=== PATIENT | male | born 1950 | race African-American/Black ===

== ENCOUNTER 2018-05-13 14:42 | Emergency (ER) | payer MEDICARE, OTHER ==
[~2018-05-13] VITALS: Ht 185.4 cm; Wt 138.8 kg
[~2018-05-13 14:42] MED LIST: ALBU2.5V8 IH; ALLO300T PO; ALPR2TAB2 PO; ASPI325T70 PO; BETA15CR5 TP; CARV25TA2 PO; FURO80TA3 PO; IPRA4AER IH; LEVO50TA5 PO; METF500T16 PO; OXYC20TA PO; PROM25SU33 RC
--- NOTE | 2018-05-13 15:56 | RAD ---
EXAM: Right knee, 3 views; right hip and pelvis, 3 views; right ankle, 3 views; right foot, 3 views; right shoulder, 3 views. HISTORY: Fall. COMPARISON: None. FINDINGS: Right knee: 3 views of the right knee are obtained. There is a right knee arthroplasty in expected position. There is a mildly displaced fracture of the superior patella, uncertain chronicity. There is a small right knee effusion. There are vascular and soft tissue calcifications. There is prepatellar soft tissue prominence which may be physiologic or due to a contusion. Right hip and pelvis: A frontal view of the pelvis and frontal and frog-leg views the right hip are obtained. There is no fracture, dislocation or subluxation. There is degenerative change at the lower lumbar levels. Right ankle and foot: 3 views of the right ankle and foot are obtained. There is a mildly displaced fracture of the fifth proximal phalanx. There is mild first metatarsal phalangeal and interphalangeal joint osteoarthritis. There are suspected second through fourth hammertoe deformities. No osteochondral lesion is seen. There is a small plantar spur. There is enthesopathy at the Achilles tendon insertion. There is diffuse ankle and hindfoot soft tissue swelling. Right shoulder: 3 views of the right shoulder obtained. There is no acute fracture, dislocation or subluxation. There is inferior marginal humeral head and glenoid spurring. There is degenerative subchondral sclerosis involving the superior humeral head. There is a corticated ossicle superior to a prominent acromial clavicular joint. IMPRESSION: 1. Mildly displaced right fifth proximal phalanx fracture. 2. Mildly displaced superior patellar fracture, of uncertain chronicity. Correlate for point tenderness in this location. 3. Right knee arthroplasty and small right knee effusion. 4. Mild right first metatarsal phalangeal and interphalangeal joint osteoarthritis. 5. Right second through fourth hammertoe deformities. 6. Small plantar spur. 7. Mild right glenohumeral osteoarthritis. Electronically signed by: Hansa Haley MD (05/13/2018 3:53 PM) [place] [id number]
--- NOTE | 2018-05-13 16:02 | PHYS DOC ---
Past Medical History Past Medical History: A-Fib, Anxiety, CHF, COPD, Diabetes-Type II, GERD, High Cholesterol, Hypertension, Hypothyroid Additional Past Medical Histor: gout Past Surgical History: Knee Replacement Additional Past Surgical Histo: hemorrhoidectomy Alcohol Use: Rarely Drug Use: None Adult General Chief Complaint Chief Complaint: MECHANICAL FALL HPI HPI Patient is a 68 year old male presented to the ER today for evaluation of right shoulder pain, right hip pain, right knee pain, right ankle pain, and right foot pain. Patient said he has hammer toe on right side, he tripped and fell down on his right side yesterday. He denied any head or neck injury. He denied any headache or neck pain or back pain. Patient walked in here for evaluation. He complains of right shoulder pain, right knee pain, right ankle pain , right side right foot pain. Patient denied any chest pain, no shortness of air, no cough, no fever. Patient at first refused to take his cloth off for this physician to exam him, after long discussion, he agreed to take it off but put it right back on, he said he will go to [facility] with cloth on. Review of Systems Review of Systems Constitutional: Denies fever or chills [] Eyes: Denies change in visual acuity, redness, or eye pain [] HENT: Denies nasal congestion or sore throat [] Respiratory: Denies cough or shortness of breath [] Cardiovascular: No additional information not addressed in HPI [] GI: Denies abdominal pain, nausea, vomiting, bloody stools or diarrhea [] : Denies dysuria or hematuria [] Musculoskeletal: Positive for right side shoulder pain, right hip pain, right knee pain, right ankle pain, right foot pain. Integument: Denies rash or skin lesions [] Neurologic: Denies headache, focal weakness or sensory changes [] Endocrine: Denies polyuria or polydipsia [] All other systems were reviewed and found to be within normal limits, except as documented in this note. Allergies Allergies Allergies Coded Allergies Type Severity Reaction Last Updated Verified No Known Drug Allergies 08/09/13 No Physical Exam Physical Exam Constitutional: Well developed, well nourished, no acute distress, non-toxic appearance. [] HENT: Normocephalic, atraumatic, bilateral external ears normal, oropharynx moist, no oral exudates, nose normal. [] Eyes: PERRLA, EOMI, conjunctiva normal, no discharge. [] Neck: Normal range of motion, no tenderness, supple, no stridor. [] Cardiovascular:Heart rate regular rhythm, no murmur [] Lungs & Thorax: Bilateral breath sounds clear to auscultation [] Abdomen: Bowel sounds normal, soft, no tenderness, no masses, no pulsatile masses. [] Skin: Warm, dry, no erythema, no rash. [] Back: No tenderness, no CVA tenderness. [] Extremities: There is no skin contusion on right shoulder, right hip, right knee, right ankle and right foot. Patient has pain in right shoulder when it was raised to 90 degree. There is tenderness to palpation along the lateral side of right foot, no open wound, right knee joint with full range of motion, no swelling there. Neurologic: Alert and oriented X 3, normal motor function, normal sensory function, no focal deficits noted. [] Psychologic: Affect normal, judgement normal, mood normal. [] Current Patient Data Vital Signs Vital Signs Date Time Temp Pulse Resp B/P (MAP) Pulse Ox O2 Delivery O2 Flow Rate FiO2 05/13/18 16:55 76 20 96 05/13/18 14:50 97.9 139/71 (93) Room Air 97.9 EKG EKG [] Radiology/Procedures Radiology/Procedures [][facility] [address] [place] [address] IMAGING REPORT Signed PATIENT: JAG BROWN ACCOUNT: [id number] : 1950 LOCATION: ER AGE: 68 SEX: M EXAM STATUS: REG ER ORD. PHYSICIAN: JHONATHAN LINDA DO REASON: fell last night, right knee, right ankle, big toe, right shoulder injuried. PROCEDURE: ANKLE RIGHT 3V EXAM: Right knee, 3 views; right hip and pelvis, 3 views; right ankle, 3 views; right foot, 3 views; right shoulder, 3 views. HISTORY: Fall. COMPARISON: None. FINDINGS: Right knee: 3 views of the right knee are obtained. There is a right knee arthroplasty in expected position. There is a mildly displaced fracture of the superior patella, uncertain chronicity. There is a small right knee effusion. There are vascular and soft tissue calcifications. There is prepatellar soft tissue prominence which may be physiologic or due to a contusion. Right hip and pelvis: A frontal view of the pelvis and frontal and frog-leg views the right hip are obtained. There is no fracture, dislocation or subluxation. There is degenerative change at the lower lumbar levels. Right ankle and foot: 3 views of the right ankle and foot are obtained. There is a mildly displaced fracture of the fifth proximal phalanx. There is mild first metatarsal phalangeal and interphalangeal joint osteoarthritis. There are suspected second through fourth hammertoe deformities. No osteochondral lesion is seen. There is a small plantar spur. There is enthesopathy at the Achilles tendon insertion. There is diffuse ankle and hindfoot soft tissue swelling. Right shoulder: 3 views of the right shoulder obtained. There is no acute fracture, dislocation or subluxation. There is inferior marginal humeral head and glenoid spurring. There is degenerative subchondral sclerosis involving the superior humeral head. There is a corticated ossicle superior to a prominent acromial clavicular joint. IMPRESSION: 1. Mildly displaced right fifth proximal phalanx fracture. 2. Mildly displaced superior patellar fracture, of uncertain chronicity. Correlate for point tenderness in this location. 3. Right knee arthroplasty and small right knee effusion. 4. Mild right first metatarsal phalangeal and interphalangeal joint osteoarthritis. 5. Right second through fourth hammertoe deformities. 6. Small plantar spur. 7. Mild right glenohumeral osteoarthritis. Electronically signed by: Hansa Ramos MD (05/13/2018 3:53 PM) [place] [id number] DICTATED and SIGNED BY: HANSA RAMOS MD DATE: 05/13/18 1549 Course & Med Decision Making Course & Med Decision Making Pertinent Labs and Imaging studies reviewed. (See chart for details) A walking boot was provided to patient but he refused to wear it. A knee immobilizer was given also but he refused to wear it. Patient will need to follow up with orthopedic surgeon next week for definitive care. Dragon Disclaimer Dragon Disclaimer This electronic medical record was generated, in whole or in part, using a voice recognition dictation system. Departure Departure Impression: Primary Impression: Toe fracture, right Additional Impression: Patella fracture Disposition: 01 HOME, SELF-CARE Condition: STABLE Referrals: VICTORIA GERBER (PCP) MANUEL BOYCE II, MD PLEASE CALL THIS ORTHOPEDIC SURGEON BELOW FOR FOLLOW UP NEXT WEEK. Patient Instructions: Foot Fracture, Knee - Patella Problems Problem Qualifiers JHONATHAN LINDA DO May 13, 2018 16:01
[2018-05-13 16:55] VITALS: BP 164/80
== END 2018-05-13 17:05 | disposition home or self-care (01) ==
LOC: ER 14:42
DX: S82.001A Unspecified fracture of right patella, initial encounter for closed fracture (principal); S92.401A Displaced unspecified fracture of right great toe, initial encounter for closed fracture; S92.911A Unspecified fracture of right toe(s), initial encounter for closed fracture; M19.011 Primary osteoarthritis, right shoulder; M19.071 Primary osteoarthritis, right ankle and foot; M20.41 Other hammer toe(s) (acquired), right foot; M77.31 Calcaneal spur, right foot; Z98.890 Other specified postprocedural states
CPT/HCPCS: 73030; 73502; 73562; 73610; 73630; 99283

== ENCOUNTER 2018-07-12 08:32 | Emergency (ER) | payer OTHER, MEDICARE ==
[~2018-07-12] VITALS: Ht 188 cm; Wt 136.5 kg
[2018-07-12 08:45] VITALS: BP 132/82
--- NOTE | 2018-07-12 09:44 | RAD ---
EXAM: Head and cervical spine CT without contrast. HISTORY: Fall. TECHNIQUE: Computed tomographic images of the head and cervical spine were obtained without contrast. *One or more of the following individualized dose reduction techniques were utilized for this examination: 1. Automated exposure control. 2. Adjustment of the mA and/or kV according to patient size. 3. Use of iterative reconstruction technique. COMPARISON: None. FINDINGS: Head: There is no hemorrhage. There is no mass effect or midline shift. There is no hydrocephalus. There is decreased attenuation within the cerebral white matter, likely due to chronic small vessel disease. There is mild cerebral volume loss. There is increased soft tissue density within the inferior left frontal scalp which may be due to scarring or a soft tissue contusion tests hematoma. The orbits and visualized paranasal sinuses mastoid air cells are unremarkable. Cervical spine: There is slight reversal of cervical lordosis. There is mild retrolisthesis of C3 on C4 and C4 on C5 and C5 on C6 and C6 on C7. There is degenerative endplate remodeling with disc space narrowing, osteophytosis and Schmorl's node formation at C3-C7. 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 This contributes to central canal stenosis described in detail below. There is calcified atherosclerotic plaque within the carotid bifurcations. The lung apices are unremarkable. At C2-C3, there is no stenosis. At C3-C4, there is a disc bulge and endplate osteophytosis. There is mild facet arthropathy. There is uncovertebral arthropathy. There is mild to moderate right and mild left foraminal stenosis. There is mild central canal stenosis. At C4-C5, there is a disc bulge and endplate osteophytosis. There is mild facet arthropathy. There is uncovertebral arthropathy. There is severe right and mild left foraminal stenosis. There is mild central canal stenosis. At C5-C6, there is a right paracentral disc osteophyte complex or ossification along the right paracentral posterior longitudinal ligament superimposed on a disc bulge and endplate osteophytosis. There is mild facet arthropathy. There is uncovertebral arthropathy. There is moderate to severe central canal stenosis. At C6-C7, there is a right paracentral disc osteophyte complex imposed on a disc bulge. There is left uncovertebral therapy. There is no stenosis. IMPRESSION: 1. No acute intracranial finding or evidence of acute cervical spine trauma. 2. Slight increased density within the inferior left frontal scalp, possibly due to scarring or a soft tissue hematoma/contusion. 3. Decreased attenuation within the cerebral white matter, likely due to chronic small vessel disease. 4. Multilevel degenerative change involving the cervical spine, resulting in stenosis at the aforementioned levels. Electronically signed by: Hansa Haley MD (07/12/2018 9:41 AM) [facility]
--- NOTE | 2018-07-12 09:47 | PHYS DOC ---
Past Medical History Past Medical History: A-Fib, Anxiety, CHF, COPD, Diabetes-Type II, GERD, High Cholesterol, Hypertension, Hypothyroid Additional Past Medical Histor: gout Past Surgical History: Knee Replacement Additional Past Surgical Histo: hemorrhoidectomy Alcohol Use: Rarely Drug Use: None Adult General Chief Complaint Chief Complaint: LOWEREXTREMITY INJURY [facility] HPI Patient is a 68 year old male who presents with complaining of a fall and injury to extremities. Patient stated he had a fall from a standing position in the bathroom 3 days ago because of losing his balance and complaining of pain in right shoulder, right rib cage, right knee and left leg as a constant pain and rated his pain 10 over 10 patient denies loss of consciousness or focal neuro deficit, nausea and vomiting, headache. Patient denies using any prescribed [id number] or pain medication. Patient currently taking Xarelto because of atrial fibrillation. Review of Systems Review of Systems Constitutional: Denies fever or chills [] Eyes: Denies change in visual acuity, redness, or eye pain [] HENT: Denies nasal congestion or sore throat [] Respiratory: Denies cough or shortness of breath [] Cardiovascular: No additional information not addressed in HPI [] GI: Denies abdominal pain, nausea, vomiting, bloody stools or diarrhea [] : Denies dysuria or hematuria [] Musculoskeletal: Denies back pain, reports joint pain [] Integument: Denies rash or skin lesions [] Neurologic: Denies headache, focal weakness or sensory changes [] Endocrine: Denies polyuria or polydipsia [] All other systems were reviewed and found to be within normal limits, except as documented in this note. Allergies Allergies Allergies Coded Allergies Type Severity Reaction Last Updated Verified No Known Drug Allergies 08/09/13 No Physical Exam Physical Exam Constitutional: Well nourished, mild distress, non-toxic appearance. [] HENT: Normocephalic, atraumatic, bilateral external ears normal, oropharynx moist. Eyes: PERRLA, EOMI, conjunctiva normal, no discharge. [] Neck: Normal range of motion, no tenderness, supple, no stridor. [] Cardiovascular:Heart rate regular rhythm, no murmur [] Lungs & Thorax: Bilateral breath sounds clear to auscultation no chest wall deformity or subcutaneous emphysema, right chest wall tenderness in lateral side.[] Abdomen: Bowel sounds normal, soft, no tenderness, no masses, no pulsatile masses. [] Skin: Warm, dry, no erythema, no rash. [] Back: No tenderness, no CVA tenderness. [] Extremities: Right shoulder without deformity or sign of injury, normal range of motion, right knee without deformity, mild tenderness in medial side of knee, left leg with ecchymosis in anterior mid leg and mild tenderness without deformity, no edema. [] Neurologic: Alert and oriented X 3, normal motor function, normal sensory function, no focal deficits noted. [] Current Patient Data Vital Signs Vital Signs Date Time Temp Pulse Resp B/P (MAP) Pulse Ox O2 Delivery O2 Flow Rate FiO2 07/12/18 08:45 98.0 58 16 132/82 (99) 98 Room Air 98.0 EKG EKG [] Radiology/Procedures Radiology/Procedures [][facility] [address] [place] [address] IMAGING REPORT Signed PATIENT: JAG BROWN ACCOUNT: [id number] : 1950 LOCATION: ER AGE: 68 SEX: M EXAM STATUS: REG ER ORD. PHYSICIAN: LAKESHA SAHA MD REASON: fall 2 days ago, on Xarelto PROCEDURE: CT HEAD AND CERVICAL SPINE WO EXAM: Head and cervical spine CT without contrast. HISTORY: Fall. TECHNIQUE: Computed tomographic images of the head and cervical spine were obtained without contrast. *One or more of the following individualized dose reduction techniques were utilized for this examination: 1. Automated exposure control. 2. Adjustment of the mA and/or kV according to patient size. 3. Use of iterative reconstruction technique. COMPARISON: None. FINDINGS: Head: There is no hemorrhage. There is no mass effect or midline shift. There is no hydrocephalus. There is decreased attenuation within the cerebral white matter, likely due to chronic small vessel disease. There is mild cerebral volume loss. There is increased soft tissue density within the inferior left frontal scalp which may be due to scarring or a soft tissue contusion tests hematoma. The orbits and visualized paranasal sinuses mastoid air cells are unremarkable. Cervical spine: There is slight reversal of cervical lordosis. There is mild retrolisthesis of C3 on C4 and C4 on C5 and C5 on C6 and C6 on C7. There is degenerative endplate remodeling with disc space narrowing, osteophytosis and Schmorl's node formation at C3-C7. 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 This contributes to central canal stenosis described in detail below. There is calcified atherosclerotic plaque within the carotid bifurcations. The lung apices are unremarkable. At C2-C3, there is no stenosis. At C3-C4, there is a disc bulge and endplate osteophytosis. There is mild facet arthropathy. There is uncovertebral arthropathy. There is mild to moderate right and mild left foraminal stenosis. There is mild central canal stenosis. At C4-C5, there is a disc bulge and endplate osteophytosis. There is mild facet arthropathy. There is uncovertebral arthropathy. There is severe right and mild left foraminal stenosis. There is mild central canal stenosis. At C5-C6, there is a right paracentral disc osteophyte complex or ossification along the right paracentral posterior longitudinal ligament superimposed on a disc bulge and endplate osteophytosis. There is mild facet arthropathy. There is uncovertebral arthropathy. There is moderate to severe central canal stenosis. At C6-C7, there is a right paracentral disc osteophyte complex imposed on a disc bulge. There is left uncovertebral therapy. There is no stenosis. IMPRESSION: 1. No acute intracranial finding or evidence of acute cervical spine trauma. 2. Slight increased density within the inferior left frontal scalp, possibly due to scarring or a soft tissue hematoma/contusion. 3. Decreased attenuation within the cerebral white matter, likely due to chronic small vessel disease. 4. Multilevel degenerative change involving the cervical spine, resulting in stenosis at the aforementioned levels. Electronically signed by: Hansa Ramos MD (07/12/2018 9:41 AM) [facility] DICTATED and SIGNED BY: HANSA RAMOS [facility] [address] [place] [address] IMAGING REPORT Signed PATIENT: JAG BROWN ACCOUNT: [id number] : 1950 LOCATION: ER AGE: 68 SEX: M EXAM STATUS: REG ER ORD. PHYSICIAN: LAKESHA SAHA MD REASON: fall two days ago PROCEDURE: KNEE RIGHT 4V EXAM: Left tibia and fibula, 2 views; right knee, 4 views; right shoulder, 3 views. HISTORY: Fall. Pain. COMPARISON: None. FINDINGS: Left tibia and fibula: 2 views of the tibia and fibula are obtained. There is a left knee arthroplasty in expected position. There are corticated ossicles adjacent to the medial and lateral condyles, likely due to the sequela of prior ligamentous injury. There are vascular calcifications. Right knee: 4 views of the right knee are obtained. There is a right knee arthroplasty in expected position. There is a chronic appearing fracture involving the superior patella or a patellar enthesophyte. There is trace right knee joint fluid. There are vascular calcifications. There is slight heterotopic ossification along the quadriceps muscle. Right shoulder: 3 views of the right shoulder obtained. There is no acute fracture, dislocation or subluxation. There is widening of the acromial clavicular joint which may be postoperative. There is a tiny inferiorly directed distal clinical or spur. There is mild inferior marginal glenoid and humeral head spurring. There are mildly displaced lateral right rib fractures, characterized on the recent radiographs obtained on the same date. IMPRESSION: 1. Right rib fractures. Please refer to the separate report for the rib radiographs on the same date. 2. Bilateral knee arthroplasties in expected position. There may be a trace right knee effusion. 3. Mild right glenohumeral osteoarthritis and widening of the right acromioclavicular, possibly postoperative. Electronically signed by: Hansa Ramos MD (07/12/2018 10:00 AM) [facility] DICTATED and SIGNED BY: HANSA RAMOS MD DATE: 07/12/18 1000 [facility] [address] [place], [place] [id number] IMAGING REPORT Signed PATIENT: JAG BROWN ACCOUNT: [id number] : 1950 LOCATION: ER AGE: 68 SEX: M EXAM STATUS: REG ER ORD. PHYSICIAN: LAKESHA SAHA MD REASON: fall two days ago, right sided chest pain under arm PROCEDURE: RIBS RIGHT AND PA CHEST EXAM: Chest and right ribs, 3 views. HISTORY: Fall. Pain. COMPARISON: 12/23/2003 FINDINGS: Frontal views of the chest and 2 views of the right ribs are obtained. There are mildly displaced lateral right fifth, sixth and seventh rib fractures. There is also deformity of the right fourth, eighth and ninth ribs which may be healed fractures. There is lateral right pleural thickening which may be due to trace pleural fluid or extrapleural fat. There is no pneumothorax. There is a prominent cardiac silhouette. There is suspected bilateral basilar atelectasis. IMPRESSION: 1. Displaced lateral right fifth, sixth and seventh rib fractures. There are also fractures of uncertain chronicity involving the right fourth, eighth and ninth ribs. 2. Slight lateral right pleural thickening possibly due to trace pleural fluid or extrapleural fat. 3. Prominent cardiac silhouette and bilateral lower lobe atelectasis. Electronically signed by: Hansa Ramos MD (07/12/2018 9:57 AM) [facility] DICTATED and SIGNED BY: HANSA RAMOS MD DATE: 07/12/18 0957 Course & Med Decision Making Course & Med Decision Making Pertinent Imaging studies reviewed. (See chart for details) Evolution of patient in ER showed 68-year-old male patient with a fall 3 days ago and complaining of shoulder and rib cage and lower extremity pain. Patient had CT of head because of taking Xarelto that was unremarkable. X-ray showed right ribs fracture. Patient did not want to have pain medication in ER and stated he already had oxycodone at home. At the time of discharge patient complaining of cough and congestion for the last 2 or 3 days that started before his fall and asking for treatment. Incentive respirometer was provided but patient refused to take it and stated he has nebulizer machine at home. I've spoken with the patient and/or caregivers. I've explained the patient's condition, diagnosis and treatment plan based on information available to me at this time. I've answered the patient's and/or caregivers questions and addressed any concerns. The patient and/or caregivers have a good understanding the patient's diagnosis, condition and treatment plan as can be expected at this point. Vital signs have been stabilized. The patient's condition is stable for discharge from the emergency department. The patient will pursue further outpatient evaluation with her primary care provider or other designated consulting physician as outlined in the discharge instructions. Patient and/or caregivers are agreeable to this plan of care and follow-up instructions have been explained in detail. The patient and/or caregivers have received these instructions in written format and expressed understanding of these discharge instructions. The patient and her caregivers are aware that if any significant change in condition or worsening of symptoms should prompt him to immediately return to this of the closest emergency department. If an emergent department is not readily available I would encourage him to call 911. Dragon Disclaimer Dragon Disclaimer This electronic medical record was generated, in whole or in part, using a voice recognition dictation system. Departure Departure Impression: Primary Impression: Fracture of ribs, three, closed Additional Impressions: Fall at home Contusion of leg, left Right shoulder strain Arthralgia of knee, right History of atrial fibrillation Bronchitis Disposition: HOME, SELF-CARE (at 1042) Condition: STABLE Referrals: VICTORIA GERBER (PCP) Patient Instructions: Arthralgia, Contusion, Fall Prevention and Home Safety, Rib Fracture, Shoulder Sprain Additional Instructions: Continue home pain medication Follow-up with your primary care physician in 2-3 days Return to ER if not getting better Scripts Azithromycin (ZITHROMAX) 250 Mg Tablet 1 PKG PO UD for infection, #1 PKG Prov: LAKESHA SAHA MD 07/12/18 Promethazine HCl/Codeine (Prometh-Codein 6.25-10 mg/5 ml) 5 Ml Syrup 5 ML PO QID, #180 ML Prov: LAKESHA SAHA MD 07/12/18 Problem Qualifiers Primary Impression: Fracture of ribs, three, closed Encounter type: initial encounter Laterality: right Qualified Codes: S22.41XA - Multiple fractures of ribs, right side, initial encounter for closed fracture Additional Impressions: Fall at home Encounter type: initial encounter Qualified Codes: W19.XXXA - Unspecified fall, initial encounter; Y92.009 - Unspecified place in unspecified non- institutional (private) residence as the place of occurrence of the external cause Contusion of leg, left Encounter type: initial encounter Qualified Codes: S80.12XA - Contusion of left lower leg, initial encounter Right shoulder strain Encounter type: initial encounter Qualified Codes: S46.911A - Strain of unspecified muscle, fascia and tendon at shoulder and upper arm level, right arm, initial encounter LAKESHA SAHA MD July 12, 2018 09:47
--- NOTE | 2018-07-12 10:00 | RAD ---
EXAM: Chest and right ribs, 3 views. HISTORY: Fall. Pain. COMPARISON: 12/23/2003 FINDINGS: Frontal views of the chest and 2 views of the right ribs are obtained. There are mildly displaced lateral right fifth, sixth and seventh rib fractures. There is also deformity of the right fourth, eighth and ninth ribs which may be healed fractures. There is lateral right pleural thickening which may be due to trace pleural fluid or extrapleural fat. There is no pneumothorax. There is a prominent cardiac silhouette. There is suspected bilateral basilar atelectasis. IMPRESSION: 1. Displaced lateral right fifth, sixth and seventh rib fractures. There are also fractures of uncertain chronicity involving the right fourth, eighth and ninth ribs. 2. Slight lateral right pleural thickening possibly due to trace pleural fluid or extrapleural fat. 3. Prominent cardiac silhouette and bilateral lower lobe atelectasis. Electronically signed by: Hansa Haley MD (07/12/2018 9:57 AM) [facility]
--- NOTE | 2018-07-12 10:04 | RAD ---
EXAM: Left tibia and fibula, 2 views; right knee, 4 views; right shoulder, 3 views. HISTORY: Fall. Pain. COMPARISON: None. FINDINGS: Left tibia and fibula: 2 views of the tibia and fibula are obtained. There is a left knee arthroplasty in expected position. There are corticated ossicles adjacent to the medial and lateral condyles, likely due to the sequela of prior ligamentous injury. There are vascular calcifications. Right knee: 4 views of the right knee are obtained. There is a right knee arthroplasty in expected position. There is a chronic appearing fracture involving the superior patella or a patellar enthesophyte. There is trace right knee joint fluid. There are vascular calcifications. There is slight heterotopic ossification along the quadriceps muscle. Right shoulder: 3 views of the right shoulder obtained. There is no acute fracture, dislocation or subluxation. There is widening of the acromial clavicular joint which may be postoperative. There is a tiny inferiorly directed distal clinical or spur. There is mild inferior marginal glenoid and humeral head spurring. There are mildly displaced lateral right rib fractures, characterized on the recent radiographs obtained on the same date. IMPRESSION: 1. Right rib fractures. Please refer to the separate report for the rib radiographs on the same date. 2. Bilateral knee arthroplasties in expected position. There may be a trace right knee effusion. 3. Mild right glenohumeral osteoarthritis and widening of the right acromioclavicular, possibly postoperative. Electronically signed by: Hansa Haley MD (07/12/2018 10:00 AM) [facility]
[2018-07-12] MEDS ORDERED: AZIT250T PO (10:47)
[2018-07-12] MEDS ORDERED: PROM5SYR2 PO (10:47)
== END 2018-07-12 10:56 | disposition home or self-care (01) ==
LOC: ER 08:32
DX: S22.41XA Multiple fractures of ribs, right side, initial encounter for closed fracture (principal); S46.911A Strain of unspecified muscle, fascia and tendon at shoulder and upper arm level, right arm, initial encounter; S80.12XA Contusion of left lower leg, initial encounter; M25.561 Pain in right knee; J40 Bronchitis, not specified as acute or chronic; I48.91 Unspecified atrial fibrillation; I11.0 Hypertensive heart disease with heart failure; I50.9 Heart failure, unspecified; E78.00 Pure hypercholesterolemia, unspecified; E03.9 Hypothyroidism, unspecified; K21.9 Gastro-esophageal reflux disease without esophagitis; F41.9 Anxiety disorder, unspecified; E11.9 Type 2 diabetes mellitus without complications; M10.9 Gout, unspecified; W18.39XA Other fall on same level, initial encounter; Y93.89 Activity, other specified; Y92.89 Other specified places as the place of occurrence of the external cause; Y99.8 Other external cause status
CPT/HCPCS: 70450; 71101; 72125; 73030; 73564; 73590; 99284